=== PATIENT | female | born 1950 | race Caucasian/White ===

== ENCOUNTER 2018-07-08 15:02 | Observation (INO) ==
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
[2018-07-08] MEDS ORDERED: Ondansetron ODT 4 MG TAB.RAPDIS SL ONE (16:14)
[2018-07-08] MEDS ORDERED: Td (TENIVAC) Vaccine 0.5 ML VIAL IM ONE (16:25)
[2018-07-08] MEDS: *HR* HYDROcodone/Acet 5/325 mg TABLET PO ONE ×2 (16:43→19:15)
[2018-07-08] MEDS ORDERED: *HR* HYDROcodone/Acet 5/325 mg TABLET PO ONE (18:19)
[2018-07-08] MEDS ORDERED: diazePAM 5 MG TABLET PO ONE (18:19)
[2018-07-08] MEDS ORDERED: Ondansetron ODT 4 MG TAB.RAPDIS SL PRN (18:36)
[2018-07-08] MEDS ORDERED: MOM Conc 10 ML UD.LIQ PO PRN (18:36)
[2018-07-08] MEDS ORDERED: Mag Hydrox/Al Hydrox/Simeth 30 ML UDC PO PRN (18:36)
[2018-07-08] MEDS ORDERED: Acetaminophen 325 MG TABLET PO PRN (18:36)
[2018-07-08] MEDS ORDERED: Naloxone 0.4 MG/ML INJ IVP PRN (18:36)
[2018-07-08] MEDS ORDERED: *HR* FentaNYL (PF) 100 MCG/2 ML VIAL IVP ONE (19:32)
[2018-07-08] MEDS: *HR* OxyCODONE Immed Rel 5 MG TABLET PO PRN (23:02)
[2018-07-09] MEDS: *HR* HYDROcodone/Acet 5/325 mg TABLET PO PRN ×3 (01:35→16:48)
[2018-07-09] MEDS: *HR* OxyCODONE Immed Rel 5 MG TABLET PO PRN (06:33)
[2018-07-09] MEDS ORDERED: *HR* Glimepiride 2 MG TABLET PO SCH (08:00)
[2018-07-09 13:12] LABS: Basophils % 0.3 %; Eosinophils # 0.1 K/mcL (0.0-0.6); Eosinophils % 0.6 %; Hematocrit 35.5 % (35.3-44.9); Hemoglobin 11.4 g/dL (11.5-15.4); Immature Granulocytes % 0.4 % (0-4); Lymphocytes # 1.7 K/mcL (0.6-4.6); Lymphocytes % 16.3 %; Mean Corpuscular HGB Conc 32.1 g/dL (31.6-35.5); Mean Corpuscular Hemoglobin 27.6 pg (28.0-33.3); Mean Platelet Volume 10.1 fL (9.4-12.4); Monocytes % 9.5 %; Neutrophils # 7.8 K/mcL (1.6-8.9); Platelet Count 236 K/mcL (140-400); Red Blood Count 4.13 M/mcL (3.82-4.97); Red Cell Distribution Width 14.5 % (11.5-14.5); Segmented Neutrophils % 72.9 %
[2018-07-09 13:20] LABS: Prothrombin Time 11.8 Seconds (9.4-12.1)
[2018-07-09 13:28] LABS: Albumin 3.9 g/dL (3.5-5.7); Albumin/Globulin Ratio 1.4 (1.1-2.2); Bilirubin,Total 0.5 mg/dL (0.3-1.0); Globulin 2.8 g/dL (2.4-3.5); Potassium 4.1 mEq/L (3.5-5.1); Total Protein 6.7 g/dL (6.4-8.9)
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
--- NOTE | 2018-07-09 14:13 | Discharge Summary ---
Orders not resulted at time of discharge: Pending orders 07/08/18 17:00 CT 3D reconstruction [CT] Stat Date of Encounter: 07/09/18 Time of Encounter: 12:20 - Discharge Diagnosis (1) Closed fracture of lateral portion of right tibial plateau Priority: Primary Status: Acute Qualifiers: Encounter type: initial encounter Qualified Code(s): S82.121A - Displaced fracture of lateral condyle of right tibia, initial encounter for closed fracture (2) Azotemia Priority: Secondary Status: Acute Hospital course: Ms. Godinez is a 67 year old female who came to emergency room after tripping at home resulting in a fall against her washing machine. Her right knee "popped" and she felt immediate pain. She came to emergency room where evaluation showed comminuted impacted lateral tibial plateau fracture of the right knee. She was admitted to [facility] for further disposition can be made. Initial orders were written by the emergency room physician. I saw her on July 09 and performed the history and physical. She was evaluated by staff at [facility] in the outpatient clinic. Surgical repair was recommended for tibial plateau fracture. The patient and family wished her to be transferred to [facility]. I spoke with the orthopedist at [facility] who agreed to accept her in transfer. - Time Spent with Patient Total time spent providing and/or coordinating discharge services: - Discharge Medications Home Medications: Glimepiride [Amaryl] 2 mg PO 0800 07/08/18 [History] HYDROcodone/Acet 5/325 mg [[place] 5-325 mg] 1 tab PO Q6H PRN 3 Days #12 tab 07/08/18 [Rx] Wheelchair - Power [POWER WHEEL CHAIR] 1 each .ROUTE AD #1 each 07/08/18 [Rx] Allergies/Adverse Reactions: Allergy/AdvReac Type Severity Reaction Status Date / Time No Known Allergies Allergy Verified 07/08/18 19:25 Date of admission: 07/08/18 19:38 Primary care physician: Jaylen Corcoran CNP Consults: 07/09/18 09:37 Consult to Occupational Therapy [CONS] Routine Comment: Evaluate, develop and implement POC Reason for Consult: Tibia fracture Does patient have active BEDREST order?: No Is patient medically & hemodynamically stable?: Yes Patient assessed for mobility or mobilized this visit?: Yes Consult to Physical Therapy [CONS] Routine Comment: Evaluate, develop and implement POC Reason for Consult: Tibia fracture Does patient have active BEDREST order?: No Is patient medically & hemodynamically stable?: Yes Patient assessed for mobility or mobilized this visit?: Yes - Constitutional Vitals: Temp Pulse Resp BP Pulse Ox 98.5 F 80 14 138/73 93 07/09/18 06:28 07/09/18 06:28 07/09/18 06:28 07/09/18 06:28 07/09/18 06:28 - Patient Status Disposition: Transfer Other Condition: Good - Discharge Instructions Follow Up With: Jaylen Corcoran, [employer]SEM[employer]ER [Primary Care Provider] - 1 week
[2018-07-09 14:47] VITALS: BP 112/67
== END 2018-07-09 17:50 | disposition other institution (70) ==
LOC: EMEROOPIK 15:02 → INPPIK 15:02
PROVIDERS: ADMIT Internal Medicine; ATTEND Internal Medicine